=== PATIENT | male | born 1950 | race Caucasian/White ===

== ENCOUNTER → 2018-09-28 | Outpatient (CLI) | payer MEDICARE, OTHER ==
--- NOTE | 2018-09-28 09:01 | Diagnostic Imaging Report ---
EXAM: CT Abdomen and Pelvis WITHOUT contrast INDICATION: ^CALCULUS OF KIDNEY; CYST OF KIDNEY COMPARISON: None. TECHNIQUE: Abdomen and pelvis were scanned utilizing a multidetector helical scanner from the lung base to the pubic symphysis without administration of IV contrast. Absence of intravenous contrast decreases sensitivity for detection of focal lesions and vascular pathology. Coronal and sagittal reformations were obtained. Routine protocol was performed. IV CONTRAST: None. ORAL CONTRAST: Water RADIATION DOSE: Total DLP: 491.5 mGy*cm Estimated effective dose: (DLP x 0.015 x size factor) mSv COMPLICATIONS: None FINDINGS: LINES and TUBES: None. LOWER THORAX: Unremarkable HEPATOBILIARY: No focal hepatic lesions. No biliary ductal dilation. GALLBLADDER: No radio-opaque stones or sludge. No wall thickening. SPLEEN: No splenomegaly. PANCREAS: No focal masses or ductal dilatation. ADRENALS: No adrenal nodules KIDNEYS/URETERS: No hydronephrosis. Multiple bilateral renal low-attenuation and mildly hyperdense cysts, measuring up to 8.5 cm on the right and 4 cm on the left. 1 mm calcified stone in the inferior pole of the right kidney on series 3, image 51. Additional 1 mm calcified stone in the upper pole of the right kidney on image 51. Mild hyperdense material in the distal right ureter at the ureterovesical junction, better seen on series 3, image 139 degree present tiny stones. No additional calcified stones in the remaining collecting system. GI TRACT: No abnormal distention, wall thickening, or evidence of bowel obstruction. Appendix is normal. PELVIC ORGANS/BLADDER: Unremarkable. LYMPH NODES: No lymphadenopathy. VESSELS: Mild atherosclerotic calcifications of the abdominal aorta without aneurysm. PERITONEUM / RETROPERITONEUM: No free air or fluid. BONES: Unremarkable. SOFT TISSUES: Unremarkable. IMPRESSION: 1. Two tiny nonobstructing right renal stones. 2. Hyperdense material in the distal left ureter may represent tiny stones. 3. Multiple bilateral low-attenuation and mildly hyperdense renal cysts are incompletely evaluated on this exam. If prior images are not available, consider follow-up in 6 months with renal ultrasound. Signed by: Dr. Elizabeth [email or web address] M.D. on 09/28/2018 8:57 AM
== END ==
LOC: CT 07:40
PROVIDERS: ATTEND Urology
DX: N20.0 Calculus of kidney (principal); N28.1 Cyst of kidney, acquired
CPT/HCPCS: 74176